=== PATIENT | female | born 1980 | race Two or more races ===

== ENCOUNTER → 2018-04-28 | Outpatient (CLI) | payer BC ==
[2018-04-28 14:29] LABS: LIPASE 373.8 U/L (23-300)
== END ==
LOC: OD 12:40
PROVIDERS: ATTEND Internal Medicine
DX: K85.12 Biliary acute pancreatitis with infected necrosis (principal)
CPT/HCPCS: 36415; 82150; 83690

== ENCOUNTER → 2018-05-17 | Outpatient (CLI) | payer BC ==
[2018-05-17 13:05] LABS: LIPASE 164.4 U/L (23-300)
== END ==
LOC: OD 11:06
PROVIDERS: ATTEND Internal Medicine
DX: K85.90 Acute pancreatitis without necrosis or infection, unspecified (principal)
CPT/HCPCS: 36415; 82150; 83690